=== PATIENT | female | born 1960 | race Caucasian/White ===

== ENCOUNTER 2017-02-27 07:02 | Day surgery (SDC) | payer BC ==
[~2017-02-27 07:02] MED LIST: Lactated Ringers 1,000 ML IV SCH; Lidocaine 1%/Sod Bicarbonate in NS 8.4% 1 ML Syringe IV PRN; Sodium Chloride 0.9% 10 ML Syringe FLUSH PRN
[2017-02-27] MEDS ORDERED: fentaNYL 100 MCG/2 ML SDV ONE (07:23)
[2017-02-27] MEDS ORDERED: Propofol 200 MG/20 ML SDV ONE (07:23)
[2017-02-27] MEDS ORDERED: Lidocaine 1% 4 ML ONE (07:23)
[2017-02-27] MEDS ORDERED: Midazolam 1 MG/ML 2 ML SDV ONE (07:23)
--- NOTE | 2017-02-27 07:27 | PCM.PREANE ---
Preanesthetic Assessment - Anesthesia/Transfusion/Family Hx Anesthesia History: Prior Anesthesia Without Reaction Family History of Anesthesia Reaction: No Transfusion History: No Prior Transfusion(s) - Review of Systems General: No Symptoms Pulmonary: No Symptoms Cardiovascular: No Symptoms Gastrointestinal: No symptoms Neurological: No Symptoms Other: Reports: Thyroid Problems, Depression, Anxiety - Physical Assessment NPO Status Date: 02/26/17 NPO Status Time: 23:30 Pulse: 81 O2 Sat by Pulse Oximetry: 98 Respiratory Rate: 16 Blood Pressure: 118/62 Temperature: 98.1 F Height: 5 ft 10 in Weight: 54.794 kg ASA Class: 2 Mental Status: Alert & Oriented x3 Airway Class: Mallampati = 1 Dentition: Reports: Normal Dentition Thyro-Mental Finger Breadths: 3 Mouth Opening Finger Breadths: 3 ROM/Head Extension: Full Lungs: Clear to auscultation, Normal respiratory effort Cardiovascular: Regular Rate, Regular Rhythm, No Murmurs - Allergies Allergies/Adverse Reactions: Allergies Allergy/AdvReac Type Severity Reaction Status Date / Time aloe vera Allergy Cannot Verified 02/26/17 15:10 Remember amoxicillin Allergy Cannot Verified 02/26/17 15:10 Remember camphor* Allergy Cannot Verified 02/26/17 15:10 Remember nut - unspecified Allergy Cannot Verified 02/26/17 15:10 Remember pollen extracts Allergy Cannot Verified 02/26/17 15:10 Remember - Blood Blood Available: No - Acknowledgements Anesthesia Type Planned: MAC Pt an Appropriate Candidate for the Planned Anesthesia: Yes Alternatives and Risks of Anesthesia Discussed w Pt/Guardian: Yes Pt/Guardian Understands and Agrees with Anesthesia Plan: Yes PreAnesthesia Questionnaire HEENT History: Reports: Allergic rhinitis Cardiovascular History: Reports: None Respiratory History: Reports: None Gastrointestinal History: Reports: Hemorrhoids METER TESTER History: Reports: None Musculoskeletal History: Reports: Arthritis Neurological History: Reports: None Psychiatric History: Reports: Anxiety, Depression Endocrine/Metabolic History: Reports: Hypothyroidism Hematologic History: Reports: Anemia Immunologic History: Reports: None Oncologic (Cancer) History: Reports: None Dermatologic History: Reports: Other (see below) Other Dermatologic History: acne - Past Surgical History Head Surgeries/Procedures: Reports: None HEENT Surgical History: Reports: Tonsillectomy Female Surgical History: Reports: Tubal ligation - SUBSTANCE USE Smoking Status *Q: Never Smoker Tobacco Use Within Last Twelve Months: No Second Hand Smoke Exposure: No Days Per Week of Alcohol Use: 1 Number of Drinks Per Day: 1 Total Drinks Per Week: 1 Recreational Drug Use History: No - HOME MEDS Home Medications: Home Meds Clindamycin Phosphate [Clindamycin Phosphate] 1 applic TOP DAILY 02/26/17 [ History] FLUoxetine HCl [Fluoxetine HCl] 10 mg PO DAILY 02/26/17 [History] Fish Oil/Cawood-3 Fatty Acids [Fish Oil 1,000 MG] 1,000 mg PO DAILY 02/26/17 [ History] Glucosamine/D3/Boswellia Kelsi [Osteo Bi-Flex Caplet] 2 tab PO DAILY 02/26/17 [ History] Levothyroxine Sodium [Levothyroxine Sodium] 50 mcg PO DAILY 02/26/17 [History] - CURRENT (IN HOUSE) MEDS Current Meds: Current Medications Lactated Ringer's (Ringers, Lactated) 1,000 mls @ 125 mls/hr IV ASDIRECTED SEUN Stop: 02/27/17 23:00 Lidocaine/Sodium Bicarbonate (Buffered Lidocaine 1% In Ns 8.4%) 0.25 ml IV ONETIME PRN PRN Reason: Prior to IV Start Stop: 02/27/17 18:00 Sodium Chloride (Saline Flush) 10 ml FLUSH ASDIRECTED PRN PRN Reason: Keep Vein Open Stop: 02/27/17 18:00 Discontinued Medications Fentanyl (Sublimaze) Confirm Administered Dose 100 mcg .ROUTE .STK-MED ONE Stop: 02/27/17 07:24 Lidocaine HCl (Xylocaine-Mpf 1%) Confirm Administered Dose 4 mls @ as directed .ROUTE .STK-MED ONE Stop: 02/27/17 07:24 Midazolam HCl (Versed 1 Mg/Ml) Confirm Administered Dose 2 mg .ROUTE .STK-MED ONE Stop: 02/27/17 07:24 Propofol (Diprivan 20 Ml) Confirm Administered Dose 200 mg .ROUTE .STK-MED ONE Stop: 02/27/17 07:24
--- NOTE | 2017-02-27 08:38 | PCM48HPAN ---
Post Anesthesia Note - EVALUATION WITHIN 48HRS OF ANESTHETIC Vital Signs in Normal Range: Yes Patient Participated in Evaluation: Yes Respiratory Function Stable: Yes Airway Patent: Yes Cardiovascular Function Stable: Yes Hydration Status Stable: Yes Pain Control Satisfactory: Yes Nausea and Vomiting Control Satisfactory: Yes Mental Status Recovered: Yes
--- NOTE | 2017-02-27 08:38 | PCM.OPNOTE ---
- General Post-Op/Procedure Note Date of Surgery/Procedure: 02/27/17 Operative Procedure(s): colonoscopy with cold forceps polypectomy Findings: sigmoid polyp < 5mm Pre Op Diagnosis: screening Post-Op Diagnosis: diminutive sigmoid polyp Anesthesia Technique: MAC, Moderate sedation Primary Surgeon: Jorje Alarcon Pathology: small sigmoid polyp EBL in mLs: 0 Complications: None Condition: Good Free Text/Narrative:: After adequate IV sedation and analgesia was obtained the patient was placed on her left side. Perianal inspection and digital rectal examination were performed and were unremarkable. A lubricated colonoscope was inserted into the rectum and advanced to the cecum without difficulty. The bowel preparation was adequate. The cecum, right colon, transverse, and descending colons were endoscopically normal with no mass lesions or inflammatory changes seen. The sigmoid had a small diminutive polyp, less than 5 mm in diameter, in its distal aspect, which I removed with cold forceps. The rectum in both views was unremarkable. Director Of Planning photographs were taken for the patient and for the record. Air was removed, as I finished the procedure, which she tolerated well.
[2017-02-27] MEDS ORDERED: Glycopyrrolate 0.2 MG/ML 2 ML SDV ONE (08:46)
[2017-02-27 08:51] VITALS: BP 93/54
== END 2017-02-27 08:58 | disposition home or self-care (01) ==
LOC: JD.SDS 07:02
PROVIDERS: ATTEND Surgery
DX: Z12.11 Encounter for screening for malignant neoplasm of colon (principal); K63.5 Polyp of colon; E03.9 Hypothyroidism, unspecified; Z88.1 Allergy status to other antibiotic agents; Z91.018 Allergy to other foods; Z91.09 Other allergy status, other than to drugs and biological substances; F32.9 Major depressive disorder, single episode, unspecified; Z68.1 Body mass index [BMI] 19.9 or less, adult; Z79.899 Other long term (current) drug therapy; Z98.890 Other specified postprocedural states; Z98.51 Tubal ligation status; Z72.0 Tobacco use
CPT/HCPCS: 45380; 88305; J2250; J3010; J7120; 00810; J2704; J3490

== ENCOUNTER 2023-09-23 09:12 | Day surgery (SDC) | payer BC ==
[~2023-09-23 09:12] MED LIST changes: +HYDROmorphone 0.5 MG/0.5 ML Syringe IVPUSH PRN; -Lidocaine 1%/Sod Bicarbonate in NS 8.4% 1 ML Syringe IV PRN; +Ondansetron 4 MG/2 ML SDV IVPUSH PRN; +Sodium Chloride 0.9% 10 ML Syringe FLUSH SCH; +fentaNYL 100 MCG/2 ML SDV IVPUSH PRN
[2023-09-23] MEDS ORDERED: Midazolam 1 MG/ML 2 ML SDV ONE (10:06)
[2023-09-23] MEDS ORDERED: Lidocaine 1% 2 ML ONE (10:06)
[2023-09-23] MEDS ORDERED: Propofol 200 MG/20 ML SDV ONE (10:07)
[2023-09-23] MEDS ORDERED: fentaNYL 100 MCG/2 ML SDV ONE (10:07)
[2023-09-23] MEDS ORDERED: ceFAZolin 2 GM Vial ONE (10:58)
[2023-09-23] MEDS ORDERED: EPINEPHrine 1 MG/ML SDV ONE (11:02)
[2023-09-23] MEDS ORDERED: Bupivacaine 0.25% 10 ML SDV ONE (11:26)
[2023-09-23] MEDS ORDERED: ePHEDrine 50 MG/ML SDV ONE (12:20)
[2023-09-23] MEDS ORDERED: Ondansetron 4 MG/2 ML SDV ONE (12:36)
[2023-09-23] MEDS ORDERED: Ketorolac 30 MG/ML SDV ONE (12:36)
[2023-09-23] MEDS ORDERED: Dexamethasone 4 MG/ML 5 ML MDV ONE (12:36)
[2023-09-23] MEDS ORDERED: Acetaminophen/HYDROcodone 325-5 MG Tab PO PRN (13:08)
[2023-09-23 15:19] VITALS: BP 90/38; PULSE 79
== END 2023-09-23 15:05 | disposition home or self-care (01) ==
LOC: JD.SDS 09:12
PROVIDERS: ATTEND Orthopaedic Surgery
DX: S83.241A Other tear of medial meniscus, current injury, right knee, initial encounter (principal); F41.9 Anxiety disorder, unspecified; F32.A Depression, unspecified; E03.9 Hypothyroidism, unspecified; Z79.890 Hormone replacement therapy; Z79.82 Long term (current) use of aspirin; Z79.899 Other long term (current) drug therapy; Z88.0 Allergy status to penicillin; Z91.048 Other nonmedicinal substance allergy status
CPT/HCPCS: 29881; J0171; J0690; J1100; J1885; J2250; J2405; J2704; J3010; J3490; J7120; 01400

== ENCOUNTER 2024-05-26 08:34 | Day surgery (SDC) | payer BC ==
[~2024-05-26 08:34] MED LIST changes: -HYDROmorphone 0.5 MG/0.5 ML Syringe IVPUSH PRN; -Lactated Ringers 1,000 ML IV SCH; -Ondansetron 4 MG/2 ML SDV IVPUSH PRN; -fentaNYL 100 MCG/2 ML SDV IVPUSH PRN
[2024-05-26] MEDS ORDERED: Propofol 200 MG/20 ML SDV ONE ×2 (09:05→09:33)
[2024-05-26] MEDS: Lactated Ringers 1,000 ML IV SCH (09:30)
[2024-05-26 10:48] VITALS: BP 114/74; PULSE 78
== END 2024-05-26 10:37 | disposition home or self-care (01) ==
LOC: JD.SDS 08:34
PROVIDERS: ATTEND Surgery
DX: Z12.11 Encounter for screening for malignant neoplasm of colon (principal); K57.30 Diverticulosis of large intestine without perforation or abscess without bleeding; K64.8 Other hemorrhoids; F41.9 Anxiety disorder, unspecified; F32.A Depression, unspecified; E03.9 Hypothyroidism, unspecified; Z79.890 Hormone replacement therapy; Z79.899 Other long term (current) drug therapy; Z88.0 Allergy status to penicillin; Z91.018 Allergy to other foods
CPT/HCPCS: 45378; J2704; J7120